=== PATIENT | female | born 1950 | race Asian ===

== ENCOUNTER 2016-10-31 07:28 | Inpatient (IN) | payer MEDICARE, BC ==
[2016-10-27 12:30] LABS: HEMATOCRIT 37.7 % (36.0-48.0); HEMOGLOBIN 14.3 g/dL (12.0-16.0)
[2016-10-27 12:41] LABS: BUN (BLOOD UREA NITROGEN) 7 MG/DL (6-23); CALCIUM, SERUM 9.2 MG/DL (8.5-10.4); CHLORIDE, SERUM 107 MMOL/L (96-112); CO2 (CARBON DIOXIDE) 25 MMOL/L (24-34); CREATININE 0.65 MG/DL (0.55-1.02); GFR AFRICAN AMERICAN 108 ML/MIN (>=60); GFR NON AFRICAN AMERICAN 93 ML/MIN (>=60); GLUCOSE, SERUM 106 MG/DL (60-99); POTASSIUM, SERUM 3.8 MMOL/L (3.5-5.3); SODIUM, SERUM 140 MMOL/L (135-148)
--- NOTE | ~2016-10-31 | OP ---
Record Of Operation [facility] [address] [place]. [address] NAME: LOBO BERNAL : 52 STATUS : ADM IN PAT#: [id number] AGE: 66 ADM/REG DATE : 10/31/16 MR#: [id number] REPORT SERV DATE: 11/03/16 DICTATED BY: RUBEN AMADOR II DATE: 11/03/16 REPORT STATUS : Draft TRANSCRIBED BY: MODL DATE: 11/03/16 DATE OF PROCEDURE: 10/31/2016 PREOPERATIVE DIAGNOSES: 1. History of L4-5 fusion, remote. 2. Adjacent segment degeneration, L3-4, L5-S1 with associated stenosis. 3. Neurogenic claudication. POSTOPERATIVE DIAGNOSES: 1. History of L4-5 fusion, remote. 2. Adjacent segment degeneration, L3-4, L5-S1 with associated stenosis. 3. Neurogenic claudication. PROCEDURES: 1. L3-4, L5-S1 laminectomy and facetectomy. 2. Interbody arthrodesis, L5-S1. 3. Posterolateral arthrodesis, L3-4, L5-S1. 4. Posterior segmental instrumentation, L3-4, L5-S1. 5. Use of local autograft, allograft substitute, and bone morphogenic protein. 6. Use of allograft substitute. 7. Use of stereotactic guidance and the microscope. SURGEON: Ruben Amador M.D. FLUIDS: 1700 mL LR. ESTIMATED BLOOD LOSS: 200 mL. DRAINS: One drain. COMPLICATIONS: None. DETAILS OF PROCEDURE: The patient was brought to the operating room after informed consent was obtained, and placed in the prone position. The back was prepped and draped in a sterile fashion. The stereotactic spinal pin was placed into the iliac crest followed by completion of the intraoperative CT scan. Stereotactic guidance was then used throughout the remainder of the case. The incision was now made on the left, and the dissection was carried down to the previous hardware. The top nuts were removed including the benjamín. At this point, the dissection was now performed along the L3-4 and L5-S1 facets. The transverse processes were now well-dissected upon at L3, L4, L5, and the sacral ala. The L4 5 fusion was solid and without motion. At this point, the quadrant retractor was placed and the facetectomy was performed at L5-S1. The [id number] decompression was achieved including removal of the pars. Please note, this was done under microscopic visualization. The dura was then well-decompressed. The ligamentum flavum was removed to decompress the L5 and S1 nerve roots. Record Of Operation [facility] [address] [place]. [address] NAME: LOBO BERNAL : 52 STATUS : ADM IN PAT#: [id number] AGE: 66 ADM/REG DATE : 10/31/16 MR#: [id number] REPORT SERV DATE: 11/03/16 DICTATED BY: RUBEN AMADOR II DATE: 11/03/16 REPORT STATUS : Draft TRANSCRIBED BY: MODL DATE: 11/03/16 Next, the interbody arthrodesis was initiated at L5-S1. The S1 nerve root was gently retracted followed by removal of the disk. The endplates were denuded of their cartilage followed by irrigation. Punctate bleeding bone was identified on both endplates. The prosthetic device was then well-placed into L5-S1. Allograft substitute, bone morphogenic protein, and local autograft were placed into the anterior column alongside the prosthetic device. Next, at this point, we performed the laminectomy and facetectomy at L3-4. Again, stenosis was identified and now removed with the Kerrison rongeurs and the pituitary rongeurs. The hypertrophic facets and ligamentum flavum were significantly found to be compressing the L3 and L4 nerve roots. Both nerve roots were well-decompressed. At this point, the stereotactic guidance was used for placement of the pedicle screws in the L3 as well as S1. We were able to keep the old hardware in place and reuse the top nuts. At this point, the benjamín was then assembled and final tightening was performed. On the right side, we then removed the L4-5 hardware (nuts and rods). At this point, we placed new screws into L3 and S1. We then had to remove one of the old screws to assist with benjamín placement. The repeat CT scan confirmed acceptable placement of the implants and final tightening was performed. Next, the decortication was performed of the transverse processes of L3, L4, L5 and the sacral ala. The local autograft, allograft substitute, and bone morphogenic protein were then placed along the decorticated surfaces. A deep drain was placed followed by standard closure, and the patient was extubated and transferred to the PACU in stable condition. PengJ/MODL Ruben Amador II, M.D. / [id number] CC: Jennifer Dumont II, M.D.
--- NOTE | ~2016-10-31 | DS ---
Discharge Summary [facility] [address] [place]. [address] NAME: LOBO BERNAL : 52 STATUS : DIS IN PAT#: [id number] AGE: 66 ADM/REG DATE : 10/31/16 MR#: [id number] REPORT SERV DATE: 11/08/16 DICTATED BY: RUBEN AMADOR II DATE: 11/07/16 REPORT STATUS : Draft TRANSCRIBED BY: MODL DATE: 11/07/16 Data Collection from hospitalization DISCHARGE DIAGNOSIS(ES): 1. History of L4-5 fusion, remote. 2. Adjacent segment degeneration, L3-4, L5-S1 with associated stenosis. 3. Neurogenic claudication. 4. Hypertension. 5. Asthma. 6. Chronic pain. CONSULTATIONS: None. PROCEDURES PERFORMED: L3-4, L5-S1 laminectomy and facetectomy; interbody arthrodesis, L5-S1; posterolateral arthrodesis, L3-4, L5-S1; posterior segmental instrumentation, L3-4, L5-S1; use of local autograft, allograft substitute, and bone morphogenetic protein; use of allograft substitute; use of stereotactic guidance and the microscope, 10/31/2016. PATHOLOGY: Spine, lumbar bone tissue and hardware fibrocartilage consistent with intervertebral disc, benign bone fragments with reparative changes, orthopedic hardware, see gross description. MEDICATIONS: Lipitor 40 mg at bedtime, Lioresal 10 mg at bedtime, vitamin B12 1000 mcg sublingually daily, Neurontin 300 mg twice daily, Singulair 10 mg at bedtime, MS Contin 15 mg twice daily, Prilosec 40 mg every morning, Advair Diskus one puff twice daily, Hyzaar one every morning, Ventolin one puff every six hours as needed, Mobic 15 mg daily, DuoNeb 1 nebulizer INH 4 times daily, oxycodone 5 mg one or two every 4 to 6 hours as needed, and Valium 2 mg one every 6 to 8 hours as needed. CONDITION AT DISCHARGE: Upon discharge, she did appear to be doing well and had no complaints. DISPOSITION: She was discharged home to continue a regular diet with activity as discussed. She was to have no lifting greater than 15 pounds. She was to follow up with me in the office on 11/26/2016. HOSPITAL COURSE: This 66-year-old female, had complaints of lumbar spine related symptoms. Her symptoms were located at the lower back with radiation into the lower extremities with the left being greater than the right with associated numbness, tingling, and weakness. She reported they were last seen in the office two weeks prior to admission. She was status post MRI of the lumbar spine on 08/28/2016. When asked about the severity level of the symptoms, she reported a pain level of 7 on a 0-10 scale. Her pain and symptoms were worsened since her last visit. She denied any injury. She did admit to the following factors that modified her symptoms; walking, prolonged position, and increased activity worsened her pain and symptoms. Heating pad, lidocaine patches, and diclofenac gel decreased the severity of her pain and symptoms. At the time of admission, she had been taking Neurontin, Ultram, baclofen, and Mobic to treat her pain and symptoms. She was now admitted for surgery and further treatment. Upon admission to the hospital, she had been Discharge Summary [address] [address] NAME: LOBO BERNAL : 52 STATUS : DIS IN PAT#: [id number] AGE: 66 ADM/REG DATE : 10/31/16 MR#: [id number] REPORT SERV DATE: 11/08/16 DICTATED BY: RUBEN AMADOR II DATE: 11/07/16 REPORT STATUS : Draft TRANSCRIBED BY: COLT DATE: 11/07/16 taken to the operating room where she did undergo the above procedure. She tolerated this well and was transferred to the recovery room. On postop day #1, she had complaints of nausea. She did report improve radiculopathy but complaints of lower extremity weakness were noted. She was afebrile, and her vital signs were stable. She had been placed on Marinol for refractory nausea. She was also evaluated by Physical Therapy. On postop day #2, her nausea had resolved. She had ambulated with physical therapy. She did appear to be doing well and had no new complaints noted. BACON DE RINDER was discontinued, and she was encouraged to ambulate. On postop day #3, she did continue to do well and was therefore discharged with the above instructions. Information collected by: Duncan NietoI.T. I submit the above information as my discharge summary. TON/MODL Ruben Amador II, M.D. / [id number] CC: Jennifer Dumont II, M.D.
[~2016-10-31 07:28] MED LIST: ACTONEL150 MG PO; ADVAIR INH; ADVAIR250 INH; ALLEGRA-D24 HOUR PO; ALLEGRA180 PO; ATROVENTUD; CLARINEX5 MG PO; COZAAR100 MG PO; DIOV160 PO; DUONEB INH; FLOVENT DISK50 MCG IN; FLOVENT DISK50 MCG INH; FOSAMAX70 MG PO; HERBAL TOP; HYZAAR 100/25 T1 TAB PO; LEVAQUIN750 MG PO; LIOR10 PO; LIPITOR40 PO; MOBIC15 MG PO; MOBIC7.5 PO; NEUR300 PO; OMNICEF300 PO; P10 PO; PRILOSEC40 MG PO; PROAIR HFA INH; PROVHFA INH; REG PO; SINGULAIR1 PO; STERAPRED DS10 MG; ULTRAM50 PO; VENTOLIN HFA INH; VIB100 PO; VITAMIN B-121000 MC1 SL; VITAMIN D1000 UNI1 PO; ZYRTEC ALLGY10 MG PO; [UNRECOGNIZED DRUG - OTHER] PO; [UNRECOGNIZED DRUG - REMARK] OPH
[2016-11-01 04:58] LABS: BASOPHILS 0 %; EOSINOPHILS 0 %; HEMOGLOBIN 11.8 g/dL (12.0-16.0); IMMATURE GRANULOCYTES 0.3 %; IMMATURE GRANULOCYTES ABSOLUTE 0.04 10/3/uL (0.0-0.11); LYMPHOCYTES 7.5 %; LYMPHOCYTES ABSOLUTE 1.01 10/3/uL (0.67-4.30); MEAN CORPUS HGB CONC 33.7 g/dL (32.0-36.0); MEAN CORPUSCULAR HEMOGLOB 31.6 pg (26.0-34.0); MEAN CORPUSCULAR VOLUME 93.8 fL (80-100); MEAN PLATELET VOLUME 9.2 fL (9.2-13.0); MONOCYTES 2.6 %; MONOCYTES ABSOLUTE 0.35 10/3/uL (0.21-1.20); NEUTROPHILS 89.6 %; NEUTROPHILS ABSOLUTE 12.07 10/3/uL (2.02-8.40); PLATELET COUNT 226 10/3/uL (150-400); RBC DISTRIBUTION WIDTH 12.1 % (12.0-16.0); RED CELL COUNT 3.73 10/6/uL (4.0-5.6)
[2016-11-01 04:59] LABS: MANUAL DIFF NO %; WHITE BLOOD CELLS 13.5 10/3/uL (4.5-10.5)
[2016-11-01 05:10] LABS: CHLORIDE, SERUM 105 MMOL/L (96-112); CREATININE 0.61 MG/DL (0.55-1.02); GFR AFRICAN AMERICAN 110 ML/MIN (>=60); GFR NON AFRICAN AMERICAN 95 ML/MIN (>=60); POTASSIUM, SERUM 4.1 MMOL/L (3.5-5.3); SODIUM, SERUM 140 MMOL/L (135-148)
[2016-11-01 05:11] LABS: BUN (BLOOD UREA NITROGEN) 14 MG/DL (6-23); CALCIUM, SERUM 7.9 MG/DL (8.5-10.4); CO2 (CARBON DIOXIDE) 30 MMOL/L (24-34); GLUCOSE, SERUM 174 MG/DL (60-99)
[2016-11-03] MEDS ORDERED: MSCONT15 PO (11:00)
[2016-11-03] MEDS ORDERED: OXYCOD PO (11:01)
[2016-11-03] MEDS ORDERED: V2 PO (11:02)
[2016-12-26] MEDS ORDERED: SINGULAIR1 PO (21:42)
[2016-12-26] MEDS ORDERED: HYZAAR 100/25 T1 TAB PO (21:42)
[2016-12-26] MEDS ORDERED: FOSAMAX70 MG PO (21:44)
[2016-12-26] MEDS ORDERED: MOBIC7.5 PO (21:45)
[2016-12-26] MEDS ORDERED: LIPITOR40 PO (21:45)
[2016-12-26] MEDS ORDERED: PRILOSEC40 MG PO (21:46)
[2016-12-26] MEDS ORDERED: VOLTAREN1 % TOP (21:47)
[2016-12-26] MEDS ORDERED: PROAIR HFA INH (21:48)
[2016-12-26] MEDS ORDERED: ALBUTEROL0.083 % INH (21:48)
[2016-12-26] MEDS ORDERED: ADVAIR INH (21:49)
[2016-12-26] MEDS ORDERED: TYLENOL PO (21:50)
[2016-12-26] MEDS ORDERED: POTASSIUM PO (21:51)
[2016-12-26] MEDS ORDERED: REFRESH OPH (21:51)
[2016-12-31] MEDS ORDERED: ENDOCET1 TAB PO (10:14)
[2016-12-31] MEDS ORDERED: V2 (10:15)
== END 2016-11-03 12:12 | disposition home or self-care (01) | DRG 460 ==
LOC: SDC/OF 07:28 → PACU 14:54 → 3SO 17:00
PROVIDERS: Orthopaedic Surgery
PROC: 0SG30AJ Fusion of Lumbosacral Joint with Interbody Fusion Device, Posterior Approach, Anterior Column, Open Approach (ICD-10-PCS; principal; 2016-10-31 10:15)
PROC: 0SG0071 Fusion of Lumbar Vertebral Joint with Autologous Tissue Substitute, Posterior Approach, Posterior Column, Open Approach (ICD-10-PCS; 2016-10-31 10:15)
PROC: 0SG3071 Fusion of Lumbosacral Joint with Autologous Tissue Substitute, Posterior Approach, Posterior Column, Open Approach (ICD-10-PCS; 2016-10-31 10:15)
PROC: 4A11X4G Monitoring of Peripheral Nervous Electrical Activity, Intraoperative, External Approach (ICD-10-PCS; 2016-10-31 10:15)
DX: M51.16 Intervertebral disc disorders with radiculopathy, lumbar region (principal); I10 Essential (primary) hypertension; J45.909 Unspecified asthma, uncomplicated; K21.9 Gastro-esophageal reflux disease without esophagitis
CPT/HCPCS: 80048; 82962; 85014; 85018; 85025; 87641; 88300; 88304; 88311; 93005; 94640; 97116-GP; 97161-GP; A9270-GY; C1713; C1768; J0360; J1030; J1170; J1580; J2250; J2405; J2710; J3010; J3370